=== PATIENT | female | born 1985 | race Hispanic/Latino ===

== ENCOUNTER 2017-08-26 12:15 | Emergency (ER) | payer SELFPAY ==
[2017-08-26] MEDS ORDERED: Ketorolac Tromethamine 60 MG/2 ML VIAL ONE (15:16)
== END 2017-08-26 15:30 | disposition home or self-care (01) ==
LOC: ERS 12:15
DX: J32.9 Chronic sinusitis, unspecified (principal)
CPT/HCPCS: 81025; 96372; J1885

== ENCOUNTER 2017-11-26 02:17 | Emergency (ER) | payer SELFPAY ==
[2017-11-26 03:03] LABS: Hemoglobin 12.5 g/dL (12.0-16.0); Mean Corpuscular Hemoglobin 29.5 pg (27.0-31.0); Mean Corpuscular Volume 86.8 fl (81.0-99.0); Mean Platelet Volume 6.9 fL (7.4-10.4); Platelet Count 340 thou/uL (130-400); RBC Distribution Width 12.7 % (11.5-14.5); Red Blood Cell (RBC) Count 4.23 mill/uL (4.20-5.40); White Blood Cell (WBC) Count 21.4 thou/uL (4.8-10.8)
[2017-11-26 03:08] LABS: ALT (SGPT) 12 U/L (8-55); AST (SGOT) 13 U/L (5-34); Albumin 3.8 g/dL (3.5-5.0); Alkaline Phosphatase 75 U/L (40-150); Anion Gap 13 mmol/L (10-20); BUN (Urea Nitrogen) 6 mg/dL (7.0-18.7); Bilirubin, Total 0.5 mg/dL (0.2-1.2); Calc. Creatinine Clearance 0 mL/min (70-130); Calcium 9.4 mg/dL (7.8-10.44); Carbon Dioxide 18 mmol/L (22-29); Chloride 104 mmol/L (98-107); Estimated GFR-MDRD Greater than 90; Glucose 143 mg/dL (70-105); Lipase 16 U/L (8-78); Potassium 3.1 mmol/L (3.5-5.1); Protein, Total 6.8 g/dL (6.0-8.3); Sodium 132 mmol/L (136-145)
[2017-11-26 03:10] LABS: Bilirubin Negative (Negative); Blood, Urine Trace (Negative); Clarity CLOUDY (Clear); Glucose, Urine (Dipstick) Negative (Negative); Leukocyte Large (Negative); Nitrite Positive (Negative); Protein, Urine (Dipstick) Trace mg/dL (Neg-Trace); Specific Gravity, Urine 1.013 (1.002-1.036); pH, Urine 6.5 (5.0-9.0)
[2017-11-26 03:13] LABS: Bacteria/HPF 4+ HPF (None Seen); Hyaline Casts/LPF 0-3 HYALINE CAST LPF (0-3 Hyaline); Pathc Cast-AUWi Flag 0.67 (0-2.49); Squamous Epithelial 0-3 HPF (0-3)
[2017-11-26 03:31] LABS: Band 15 % (5-11); Lymphocytes 13 % (21-51); MDiff Complete? YES; Monocytes 10 % (0-10); Neutrophil 62 % (42-75)
[2017-11-26] MEDS ORDERED: cefTRIAXone\\ROCEPHIN 2 GM in Sodium Chloride 0.9% 100 ML IVPB SCH (03:45)
--- NOTE | 2017-11-26 08:55 | ULT ---
PRELIMINARY REPORT/[facility]/EMERGENCY AFTER HOURS PROCEDURE: EXAM: US After First Trimester, Transabdominal EXAM DATE/TIME: 11/26/2017 2:53 AM CLINICAL HISTORY: 32 years old, female; Pain; Other: Cramping, uti; Gestational age or lmp: 14-15wks; TECHNIQUE: Real-time transabdominal obstetrical ultrasound of the maternal pelvis and a second or third trimester with image documentation. COMPARISON: No relevant prior studies available. FINDINGS: Fetus: Single Heart rate: 173 bpm Presentation: Cephalic. Placenta: Anterior. No abruption. Amniotic fluid: Normal volume. Anatomy: Visualized anatomy is normal, limited evaluation at early gestational age. BIOMETRICS Gestational age by US: GA by US: 14 weeks, 2 days BPD: 2.5 Cm HC: 10 cm AC: 7.7 Cm FL: 1.2 Cm MATERNAL: Uterus: Unremarkable. No myometrial mass. Cervix: 4.2 Cm as visualized. Closed. Free fluid: No free fluid. IMPRESSION: 1. Single viable intrauterine with EGA 14 weeks, 2 days by current US. 2. No acute findings. Thank you for allowing us to participate in the care of your patient. Dictated and Authenticated by: Yusra Faustin MD 11/26/2017 4:28 AM Central Time ([place] & [place]) FINAL REPORT EMERGENT AFTER HOURS PELVIC ULTRASOUND: DATE: 11/26/17. HISTORY: Positive , cramping, UTI. FINDINGS: There is evidence of a single intrauterine gestation. Cardiac Doppler does demonstrate heart t ones with a heart rate of 173 b.p.m. The placenta is located anteriorly. Subjectively, there is a normal amount of amniotic fluid. Cervical length grossly measures 4.2 cm in length. measurements: Biparietal diameter 2.5 cm, 14 weeks 3 days Head circumference 9.99 cm, 14 weeks 5 days Abdominal circumference 7.67 cm, 14 weeks 1 day Femur length 1.19 cm, 13 weeks 4 days anatomical structures are not well evaluated due to early intrauterine gestational age. No definite anomalies are visualized on this exam. IMPRESSION: 1. Single intrauterine gestation with heart tones documented. Estimated gestational age by ul trasound is 14 weeks and 2 days with an estimated date of delivery on 05/25/18. Gestational age by th e last menstrual period is 15 weeks and 3 days. 2. The above findings are in agreement with the preliminary report by [facility]. POS: [facility]
== END 2017-11-26 04:55 | disposition home or self-care (01) ==
LOC: ERS 02:17
DX: O23.02 Infections of kidney in pregnancy, second trimester (principal); Z3A.14 14 weeks gestation of pregnancy
CPT/HCPCS: 76856; 80053; 81003; 81015; 83605; 83690; 84702; 85025; 87077; 87086; 87186; 93976; 96361; 96365; J0696; J7050

== ENCOUNTER 2017-11-27 19:16 | Inpatient (IN) | payer SELFPAY ==
[~2017-11-27 19:16] MED LIST: Potassium Chloride 40 MEQ in Sodium Chloride 0.9% 250 ML 250 ML IVPB SCH
[2017-11-27] MEDS ORDERED: Acetaminophen 500 MG TAB PO PRN (19:38)
[2017-11-27] MEDS ORDERED: Ondansetron HCl/PF 4 MG/2 ML Vial SLOW IVP PRN (19:38)
[2017-11-27] MEDS: Lactated Ringer's 1,000 ML IV SCH (21:45)
[2017-11-27] MEDS ORDERED: Sodium Chloride 0.9% 30 ML ONE (21:53)
--- NOTE | 2017-11-27 22:10 | PDOC.FPRHP ---
- History of Present Illness Chief Complaint: dysuria, flank pain History of Present Illness: Mrs. Qiu is a 32 yo female @ 15.4wks who presents as a direct admit from clinic for suspected pyelonephritis and mild dehydration. She actually came to the ER last night with dysuria and back pain, was found to have a UTI and sent home on macrobid. She took one pill ~ 0400 then woke up the next morning and went to her PNC apt. At her apt, she was found to have worsening CVA tenderness and dysuria. She actually states that she has had the dysuria for ~2 months, but over the past couple days, it progressed to back pain. She also endorses some nausea and 3 episodes of vomiting. She has had decreased PO intake today d/t the nausea. - Allergies/Adverse Reactions Allergies Allergy/AdvReac Type Severity Reaction Status Date / Time No Known Allergies Allergy Verified 02/17/15 18:02 - Home Medications Medication Instructions Recorded Confirmed Type Vit,Calc78/Iron/Folic 1 tablet PO DAILY 01/20/15 02/22/15 History [Prenatabs FA Tablet] glyBURIDE 2.5 mg PO BID-WM 02/17/15 02/22/15 History Ibuprofen [Motrin] 800 mg PO Q8HR #0 tab 02/23/15 Rx - History PMHx: none OB hx: 2 prior vaginal deliveries 1st: male, , no complications 2nd: female, , gestational diabetes complications: none Medications: PNV PSHx: none FHx:none Social:denies alcohol, tobacco, and drug use - Review of Systems General: reports: fever/chills. denies: weight/appetite/sleep changes, night sweats ENT: denies: nasal congestion, rhinorrhea Respiratory: denies: cough, congestion, shortness of breath Cardiovascular: denies: chest pain, palpitation, edema Gastrointestinal: reports: nausea, vomiting. denies: diarrhea, constipation, abdominal pain Genitourinary: reports: dysuria. denies: incontinence, polyuria, discharge Skin: denies: rashes, lesions, jaundice Musculoskeletal: reports: pain (back, left sided). denies: tenderness, stiffness Neurological: denies: numbness, syncope Psychological: denies: anxiety, depression - Vital signs BP: 111/64 HR: 109 RR: 22 Tmax: 98.7 - Physical Exam Constitutional: NAD, awake, alert and oriented HEENT: normocephalic and atraumatic, PERRLA, EOMI, grossly normal vision, grossly normal hearing, other (dry mucous membranes) Neck: supple, no LAD, no JVD, no thyromegaly Heart: normal S1/S2, no murmurs/rubs/gallops, pulses present, no edema, other ( tachycardic) Lungs: CTAB, no respiratory distress, good air movement, no rales/rhonchi, no wheezing, no retractions Abdomen: soft, non-tender, bowel sounds present Musculoskeletal: other (cva tenderness on the left) Neurological: no focal deficit, normal sensation Skin: no rash/lesions FMR H&P: Results - Labs Result Diagrams: 11/27/17 22:56 11/27/17 22:56 FMR H&P: A/P - Problem List (1) Sepsis Current Visit: Yes Status: Acute Code(s): A41.9 - SEPSIS, UNSPECIFIED ORGANISM (2) Pyelonephritis Current Visit: Yes Status: Acute Code(s): N12 - TUBULO-INTERSTITIAL NEPHRITIS, NOT SPCF ACUTE OR CHRONIC (3) History of gestational hypertension Current Visit: Yes Status: Acute Code(s): Z87.59 - PERSONAL HISTORY OF COMP OF PREG, CHLDBRTH AND THE PUERP (4) Intrauterine Current Visit: Yes Status: Acute Code(s): Z34.90 - ENCNTR FOR SUPRVSN OF NORMAL , UNSP, UNSP TRIMESTER (5) Second trimester Current Visit: Yes Status: Acute Code(s): Z34.92 - ENCNTR FOR SUPRVSN OF NORMAL PREG, UNSP, SECOND TRIMESTER (6) Gestational diabetes Current Visit: Yes Status: Acute Code(s): O24.419 - GESTATIONAL DIABETES MELLITUS IN , UNSP CONTROL - Plan 32 yo female @ 15.4wks presents with left sided flank pain, dysuria, admitted from [facility] for sepsis 2/2 pyelonephritis. 1.)Sepsis 2/2 pyelonephritis-pt is tachycardic and has an elevated wbc; we started her on IV rocephin. The culture from the ER last night is growing angeles sensitive E. coli. We will repeat cbc and bmp in the am and order blood cultures. We also started her on fluids of LR @ 125ml/hr. We provided her with tylenol 38784 q8h and norco 5/328 q8h prn. She also has morphine for pain control as she was in a lot of pain when we saw her. We discussed the risks and benefits of opiates in . We also ordered a renal ultrasound. 2.)Pyelonephritis-see above. 2.)sIUP-@ 15.4wks, no complications at this time. She has a pmhx of gestational diabetes with her prior . 4.)Gestational diabetes- pt's current glucose is 236. We will order SSI and q4h accuchecks. We will start her on metformin and also order a hba1c. 5.)Mild dehydration- we started her on LR @ 125ml/hr 6.)Hypokalemia-likely 2/2 dehydration. She is on LR @ 125ml/hr. We will recheck in the am. FMR H&P: Upper Level - Pertinent history This is a 32 yo F @ 15.4 weeks approximately presents to PNC today with concerns for urinary symptoms and back pain. She was seen in the ER yesterday and was diagnosed with pyelonephritis and given rocephin IM and sent home on Macrobid. A US was done, and found to have a viable IUP. She was discharged home , and patient was seen in PNC today and felt that she was worsening, with decreased PO intake and nausea, and therefore was sent for admission for Pyelonephritis and dehydration. Has not felt baby move yet. No LOF or vaginal bleeding or CTX. Complains of urinary symptoms for about 2 months, however just recently started having fevers for the past few days and back pain. PE: GEN: AOx4, appears uncomfortable. CV: Tachycardic regular. No murmurs. Resp: CTA bilaterally. Ext: No LE swelling Abd: Minimal tenderness to palpation. No peritoneal signs or rebound or guarding. Back: + CVA tenderness on Left, equivical CVA tenderness R. A/P: 1) Complicated E.coli Pyelonephritis - Urine Cx from yesterday showed E. Coli pansensitive. Will continue Rocephin IV for now. Zofran for nausea. Tylenol for pain control, and morphine if needed. Discussed risks vs benefits of medications with patient. Patient aware and understands and would like to take medication if needed. CBC, CMP. Renal US. 2) IUP - heart tones QD. 3) Mild Dehydration - LR @ 125. - Plan Date/Time: 11/27/172209 I, [], have evaluated this patient and agree with findings/plan as outlined by diversity intern resident. Pertinent changes/additions are listed here. Attending Addendum - Attending Addendum Date/Time: 11/27/17 7518 I personally evaluated the patient and discussed the management with Dr. Israel Chopra on 11/27/17. I agree with the History, Examination, Assessment and Plan documented above with any addition or exceptions noted below. Patient is a multip at 14 wks with pyelonephritis. Start Rocephin and IV fluid resuscitation. Urine and blood cx. Renal US. Tylenol for fever, with morphine /[place] for pain control.
[2017-11-27] MEDS ORDERED: hydrOXYzine 10 MG TAB PO PRN (22:39)
[2017-11-27] MEDS ORDERED: Sodium Chloride 0.9% 1,000 ML IV SCH (23:00)
[2017-11-27 23:10] LABS: #Eosinphils 0.1 thou/uL (0.0-0.7); #Neutrophils 12.4 thou/uL (1.40-6.50); %Basophils 0.2 % (0.0-1.0); %Eosinophils 0.6 % (0.0-10.0); %Lymphocytes 12.6 % (21.0-51.0); %Monocytes 6.4 % (0.0-10.0); %Neutrophils 80.2 % (42.0-75.0); Hemoglobin 11.4 g/dL (12.0-16.0); Mean Corpuscular HGB CONC 33.4 g/dL (32.0-36.0); Mean Corpuscular Hemoglobin 29.2 pg (27.0-31.0); Mean Corpuscular Volume 87.3 fl (81.0-99.0); Platelet Count 319 thou/uL (130-400); RBC Distribution Width 12.6 % (11.5-14.5); Red Blood Cell (RBC) Count 3.91 mill/uL (4.20-5.40); White Blood Cell (WBC) Count 15.5 thou/uL (4.8-10.8)
[2017-11-27] MEDS: cefTRIAXone\\ROCEPHIN 1 GM, Syringe 0.4 ML in Sterile Water 9.6 ML SLOW IVP SCH (23:20)
[2017-11-27] MEDS ORDERED: Morphine 5 MG/ML SYRINGE SLOW IVP PRN (23:28)
[2017-11-27 23:34] LABS: ALT (SGPT) 14 U/L (8-55); AST (SGOT) 11 U/L (5-34); Albumin 3.4 g/dL (3.5-5.0); Alkaline Phosphatase 100 U/L (40-150); Anion Gap 16 mmol/L (10-20); BUN (Urea Nitrogen) Less than 4 mg/dL (7.0-18.7); Bilirubin, Total 0.3 mg/dL (0.2-1.2); Calc. Creatinine Clearance 0 mL/min (70-130); Calcium 9.4 mg/dL (7.8-10.44); Carbon Dioxide 18 mmol/L (22-29); Chloride 104 mmol/L (98-107); Estimated GFR-MDRD Greater than 90; Glucose 236 mg/dL (70-105); Protein, Total 6.4 g/dL (6.0-8.3); Sodium 135 mmol/L (136-145)
[2017-11-27 23:38] LABS: Potassium 2.7 mmol/L (3.5-5.1)
[2017-11-28] MEDS ORDERED: Potassium Chloride 20 MEQ TAB PO SCH ×2 (00:15→04:30)
[2017-11-28] MEDS ORDERED: Dextrose 5% in Water 1,000 ML IV PRN (03:02)
[2017-11-28] MEDS ORDERED: Dextrose 50% Abboject 50 ML SYRINGE SLOW IVP PRN (03:02)
[2017-11-28] MEDS ORDERED: HumaLOG 300 UNITS/3 ML VIAL SC PRN (03:02)
[2017-11-28] MEDS ORDERED: Acetaminophen 650 MG in Premix Bag 1 BAG IVPB PRN (03:07)
[2017-11-28 03:21] VITALS: BMI 25.2
[2017-11-28 03:47] LABS: Hemoglobin A1c 5.6 % (4.0-6.0)
[2017-11-28 03:49] LABS: #Eosinphils 0.1 thou/uL (0.0-0.7); #Lymphocytes 2.5 thou/uL (1.20-3.40); #Monocytes 1.3 thou/uL (0.11-0.59); %Basophils 0.2 % (0.0-1.0); %Lymphocytes 20.7 % (21.0-51.0); %Neutrophils 67.1 % (42.0-75.0); Hemoglobin 11.2 g/dL (12.0-16.0); Mean Corpuscular HGB CONC 33.5 g/dL (32.0-36.0); Mean Corpuscular Hemoglobin 29.4 pg (27.0-31.0); Mean Corpuscular Volume 87.9 fl (81.0-99.0); Mean Platelet Volume 6.9 fL (7.4-10.4); Platelet Count 320 thou/uL (130-400); RBC Distribution Width 12.6 % (11.5-14.5); White Blood Cell (WBC) Count 11.9 thou/uL (4.8-10.8)
[2017-11-28 03:51] LABS: Anion Gap 9 mmol/L (10-20); BUN (Urea Nitrogen) 4 mg/dL (7.0-18.7); Calc. Creatinine Clearance 164 mL/min (70-130); Calcium 9.1 mg/dL (7.8-10.44); Carbon Dioxide 24 mmol/L (22-29); Chloride 107 mmol/L (98-107); Estimated GFR-MDRD Greater than 90; Glucose 107 mg/dL (70-105); Sodium 137 mmol/L (136-145)
[2017-11-28] MEDS: HYDROcodone/Acetaminophen 5/325 mg Tablet PO PRN ×2 (06:33→14:08)
--- NOTE | 2017-11-28 07:48 | PDOC.FM ---
- Subjective Subjective: 32 yo @15.4 weeks gestation admitted for sepsis 2/2 pyelo. On admission she was having significant n/v and unable to take PO. Pt states that she she feels slightly better today than yesterday with some improvement in her nausea and back pain. She has no new complaints. There were no acute events overnight - Objective Vital Signs & Weight: Vital Signs (12 hours) Temp Pulse Resp BP 11/28/17 05:30 98.4 F 104 H 22 H 121/64 11/28/17 00:35 98.7 F 109 H 22 H 111/64 11/27/17 21:15 99.2 F 107 H 22 H 118/61 Weight Weight 70.76 kg Result Diagrams: 11/28/17 03:30 11/28/17 03:30 <Sam Paul - Last Filed: 11/28/17 07:43> - Objective Vital Signs & Weight: Vital Signs (12 hours) Temp Pulse Resp BP Pulse Ox 11/29/17 16:53 98.0 F 83 20 134/74 11/29/17 12:59 97.5 F L 88 20 116/69 11/29/17 08:15 98.5 F 95 20 11/29/17 08:00 98.5 F 95 20 142/71 H 99 11/29/17 05:05 98.1 F 91 20 112/59 L 97 Weight Weight 70.76 kg I&O: 11/28/17 11/29/17 11/30/17 06:59 06:59 06:59 Intake Total 1933 Output Total 3500 800 Balance -1567 -800 Result Diagrams: 11/28/17 03:30 11/29/17 05:20 <Mallory Heredia - Last Filed: 11/29/17 17:07> Phys Exam - Physical Examination Constitutional: NAD HEENT: PERRLA, moist MMs Neck: supple, full ROM Respiratory: clear to auscultation bilateral Cardiovascular: RRR, no significant murmur Gastrointestinal: soft, non-tender, positive bowel sounds Musculoskeletal: no edema b/l CVAT Neurological: normal sensation, moves all 4 limbs Psychiatric: normal affect, A&O x 3 Skin: no rash, normal turgor <Sam Paul - Last Filed: 11/28/17 07:43> Dx/Plan (1) Sepsis Code(s): A41.9 - SEPSIS, UNSPECIFIED ORGANISM Status: Acute QualifierTitle: Sepsis type: Escherichia coli Qualified Code(s): A41.51 - Sepsis due to Escherichia coli [E. coli] (2) Pyelonephritis Code(s): N12 - TUBULO-INTERSTITIAL NEPHRITIS, NOT SPCF ACUTE OR CHRONIC Status: Acute (3) Hyperglycemia Code(s): R73.9 - HYPERGLYCEMIA, UNSPECIFIED Status: Acute (4) Intrauterine Code(s): Z34.90 - ENCNTR FOR SUPRVSN OF NORMAL , UNSP, UNSP TRIMESTER Status: Chronic (5) Hypokalemia Code(s): E87.6 - HYPOKALEMIA Status: Acute (6) Dehydration Code(s): E86.0 - DEHYDRATION Status: Acute - Plan Plan: Sepsis 2/2 pyelonephritis - pt continues to be tachycardic with an elevated wbc - Previous urine cx shows angeles sensitive e coli, given that she cannot take PO, will continue IV abx with plan to change to orals when tolerated. - blood cx pending - CBC/BMP in am - renal US pending - LR @125 for IVF - tylenol 83995 q8h and norco 5/328 q8h prn. Pyelo - as above sIUP - 15.4wks, no complications at this time. Hyperglycemia - on admission glucose was 236. more recently 107 and 99. - Likely stress reaction given A1c if 5.6. Screen for GDM per usual management outpatient Mild dehydration - IVF as above Hypokalemia - asymptomatic - K has been added to IVF. Recheck this afternoon - Mg 1.9 <Sam Paul - Last Filed: 11/28/17 07:43> Attending Addendum - Attending Addendum Date/Time: 11/28/17 3787 I personally evaluated the patient and discussed the management with Dr. Paul I agree with the History, Examination, Assessment and Plan documented above with any addition or exceptions noted below. 32 yo female at 15.4 wks by 15.3 wk sono admitted for pyelonephritis HD#1 Remains afebrile. CVA tenderness still present. Nausea still present. No emesis overnight. Appetite still suppressed. FHT 132 NAD, RRR, CTA bilaterally, mild CVA tenderness bilaterally, abdomen soft, BS present 1. sIUP: Routine care 2. Pyelonephritis: Continue IV antibx until pain improved and afebrile. E. coli [place] sensitive. Renal sono benign. Will need antibx ppx throughout and up to 6 wks pp. Will need periodic urine cultures as well throughout . 3. Hyperglycemia: A1c WNL. No evidence of glucose intolerance. Screen for GDM at 24 wks. 4. Hypokalemia: Resolved with replacement. 5. Mild dehydration: Resolved with IVFs. Continue IV antibx and IVFs. Likely transition to PO tomorrow. ABrayMD <Mallory Heredia - Last Filed: 11/29/17 17:07>
[2017-11-28] MEDS ORDERED: FLU VACC QS2017-18 36 mo. & older 0.5 ML SYRINGE IM ONE (09:00)
--- NOTE | 2017-11-28 09:12 | ULT ---
RENAL ULTRASOUND: History: Pyelonephritis. FINDINGS: Real-time imaging of the right and left kidneys were performed. The right kidney measures 10.6, the l eft 11.0 cm in size. No signs of cysts, mass or obstruction. Bladder region is unremarkable. Patient is noted to be . IMPRESSION: Unremarkable renal ultrasound. POS: OFF
[2017-11-28] MEDS ORDERED: Lactated Ringer's 500 ML IV SCH (09:45)
[2017-11-28] MEDS: Potassium Chloride 20 MEQ, Admixture Fee 1 EACH in Lactated Ringer's 1,000 ML IV SCH ×2 (10:06→13:44)
[2017-11-28] MEDS: Prenatal Vitamin 1 TAB PO SCH (10:16)
[2017-11-28] MEDS: Lactated Ringer's 1,000 ML IV SCH (13:45)
[2017-11-28] MEDS: cefTRIAXone\\ROCEPHIN 1 GM, Syringe 0.4 ML in Sterile Water 9.6 ML SLOW IVP SCH (20:06)
[2017-11-29] MEDS: HYDROcodone/Acetaminophen 5/325 mg Tablet PO PRN ×2 (00:26→08:52)
[2017-11-29] MEDS: Potassium Chloride 20 MEQ, Admixture Fee 1 EACH in Lactated Ringer's 1,000 ML IV SCH (00:28)
[2017-11-29 05:58] LABS: Anion Gap 11 mmol/L (10-20); BUN (Urea Nitrogen) 5 mg/dL (7.0-18.7); Calc. Creatinine Clearance 167 mL/min (70-130); Calcium 9.4 mg/dL (7.8-10.44); Carbon Dioxide 22 mmol/L (22-29); Chloride 105 mmol/L (98-107); Estimated GFR-MDRD Greater than 90; Glucose 95 mg/dL (70-105); Sodium 134 mmol/L (136-145)
[2017-11-29] MEDS ORDERED: Acetaminophen 500 MG TAB PO PRN (07:15)
[2017-11-29] MEDS: Lactated Ringer's 1,000 ML IV SCH ×2 (08:09→16:19)
--- NOTE | 2017-11-29 08:29 | PDOC.FM ---
- Subjective Subjective: 32 yo at 15.5 here for elmo. Pt states that she feels somewhat better today than yesterday. She has decreased nausea and has had no vomiting since yesterday afternoon and was able to keep down some dinner last night. She has no new complaints today. There were no acute events over night. - Objective Vital Signs & Weight: Vital Signs (12 hours) Temp Pulse Resp BP Pulse Ox 11/29/17 05:05 98.1 F 91 20 112/59 L 97 11/29/17 00:15 98.2 F 96 20 117/59 L 97 Weight Weight 70.76 kg I&O: 11/28/17 11/29/17 11/30/17 06:59 06:59 06:59 Intake Total 193 Output Total 3500 800 Balance -1628 -583 Result Diagrams: 11/28/17 03:30 11/29/17 05:20 <Sam Paul - Last Filed: 11/29/17 08:27> - Objective Vital Signs & Weight: Vital Signs (12 hours) Temp Pulse Resp BP Pulse Ox 11/29/17 16:53 98.0 F 83 20 134/74 11/29/17 12:59 97.5 F L 88 20 116/69 11/29/17 08:15 98.5 F 95 20 11/29/17 08:00 98.5 F 95 20 142/71 H 99 Weight Weight 70.76 kg I&O: 11/28/17 11/29/17 11/30/17 06:59 06:59 06:59 Intake Total 193 202 Output Total 3500 800 Balance -6591 -756 Result Diagrams: 11/28/17 03:30 11/29/17 05:20 <Mallory Heredia - Last Filed: 11/29/17 18:19> Phys Exam - Physical Examination Constitutional: NAD HEENT: PERRLA, moist MMs Neck: supple, full ROM Respiratory: clear to auscultation bilateral Cardiovascular: RRR, no significant murmur Gastrointestinal: soft, non-tender, no distention Musculoskeletal: no edema Mild CVAT on L Neurological: non-focal, moves all 4 limbs Psychiatric: normal affect, A&O x 3 Skin: no rash <Sam Paul - Last Filed: 11/29/17 08:27> Dx/Plan (1) Sepsis Code(s): A41.9 - SEPSIS, UNSPECIFIED ORGANISM Status: Acute QualifierTitle: Sepsis type: Escherichia coli Qualified Code(s): A41.51 - Sepsis due to Escherichia coli [E. coli] (2) Pyelonephritis Code(s): N12 - TUBULO-INTERSTITIAL NEPHRITIS, NOT SPCF ACUTE OR CHRONIC Status: Acute (3) Hyperglycemia Code(s): R73.9 - HYPERGLYCEMIA, UNSPECIFIED Status: Acute (4) Intrauterine Code(s): Z34.90 - ENCNTR FOR SUPRVSN OF NORMAL , UNSP, UNSP TRIMESTER Status: Chronic (5) Hypokalemia Code(s): E87.6 - HYPOKALEMIA Status: Resolved (6) Dehydration Code(s): E86.0 - DEHYDRATION Status: Resolved - Plan Plan: Sepsis 2/2 pyelonephritis - clinically improving, tachycardia resolved yesterday afternoon. All vitals have been normal since - Urine cx shows angeles sensitive e coli. Consider moving to oral abx today - blood cx prelim results show no growth - renal US negative - Stop IVF today and move to oral hydration - tylenol 22954 q8h and norco 5/328 q8h prn. Pyelo - as above sIUP - 15.4wks, no complications at this time. Hyperglycemia - on admission glucose was 236. more recently 107 and 99. - Likely stress reaction given A1c if 5.6. Screen for GDM per usual management outpatient Mild dehydration - resolved Hypokalemia - resolved Dispo: Pending continued PO intake pt ready for dc this afternoon or in am <Sam Paul - Last Filed: 11/29/17 08:27> Attending Addendum - Attending Addendum Date/Time: 11/29/17 7245 I personally evaluated the patient and discussed the management with Dr. Paul I agree with the History, Examination, Assessment and Plan documented above with any addition or exceptions noted below. 32 yo female at 15.5 wks by 15.3 wk sono admitted for pyelonephritis HD#2 Remains afebrile. CVA tenderness resolved. Nausea improved. No emesis overnight. Tolerating PO well. NAD, RRR, CTA bilaterally, No CVA tenderness, abdomen soft, gravid, BS present 1. sIUP: Routine care 2. Pyelonephritis: Switch to PO antibx. Will complete total of 10 day treatment. E. coli ang[place] sensitive. Renal sono benign. Will need antibx ppx throughout and up to 6 wks pp. Will need periodic urine cultures as well throughout . 3. Hyperglycemia: A1c WNL. No evidence of glucose intolerance. Screen for GDM at 24 wks. 4. Hypokalemia: Resolved with replacement. 5. Mild dehydration: Resolved with IVFs. D/c to home this afternoon. [place] <Mallory Heredia - Last Filed: 11/29/17 18:19>
[2017-11-29] MEDS: Prenatal Vitamin 1 TAB PO SCH (08:52)
[2017-11-29 16:54] VITALS: BP 134/74; TEMP 98
[2017-11-29] MEDS ORDERED: Cephalexin 250 MG CAP PO SCH (17:15)
--- NOTE | 2017-11-29 22:16 | DIS-2 ---
DATE OF ADMISSION: 11/27/2017 DATE OF DISCHARGE: 11/29/2017 RESIDENT: Sam Paul D.O. ADMITTING ATTENDING: Maude Oglesby D.O. DISCHARGE ATTENDING: Mallory Heredia M.D. CONSULTATIONS: None. PROCEDURES: None. ADMISSION DIAGNOSES: Sepsis secondary to pyelonephritis. Second trimester intrauterine . History of gestational hypertension and history of gestational diabetes. DISCHARGE DIAGNOSES: Pyelonephritis, history of gestational hypertension, history of gestational brent betes and second trimester intrauterine . DISCHARGE MEDICATIONS: vitamin p.o. daily and Keflex 250 mg capsules, 500 mg p.o. b.i.d. x8 days. HOSPITAL COURSE: This is a 32-year-old G4, P2 at 15 and 4 weeks on admission who is a direct admit f rom the Clinic for suspected pyelonephritis and dehydration. The patient had been seen the day prior to admission in the emergency room where they found a UTI and sent her on an outpatient rosario atment of [facility]. The next morning, she had a previous scheduled appointment with Clinic and it was noticed that she had significant nausea and vomiting as well as costovertebral angle tende rness. The patient was a direct admit from there. On admission, the urine culture from the prior da y resulted in a pansensitive E. coli. Due to being unable to tolerate p.o. intake, the patient was p ut on IV Rocephin and was given intravenous fluid resuscitation. The patient was additionally given Zofran for her nausea and vomiting. An ultrasound during admission was ordered to rule out a possibl e abscess, this ultrasound was negative. Over the course of the hospitalization, the patient's nause a and vomiting improved significantly. On the day of discharge, she was able to tolerate p.o. food a nd drink. She was ambulating without pain. She denied continued costovertebral angle tenderness or pain. She was nontachycardic. All vital signs are normal. It was recommended due to the fact that she had pyelonephritis while that after completing her treatment course she [facility] for the remainder of and 6 weeks . DISPOSITION: Stable. DISCHARGE INSTRUCTIONS: 1. Location: Home. 2. Diet: Regular. 3. Activity: Ad jared. 4. Followup: Follow up with Clinic in 1 week.
[2017-11-30] MEDS ORDERED: Cephalexin 250 MG CAP PO SCH (09:00)
== END 2017-11-29 18:20 | disposition home or self-care (01) | DRG 781 ==
LOC: 3SE 19:16
PROVIDERS: ADMIT Student in an Organized Health Care Education/Training Program; ATTEND Student in an Organized Health Care Education/Training Program
DX: O98.812 Other maternal infectious and parasitic diseases complicating pregnancy, second trimester (principal); A41.9 Sepsis, unspecified organism; O23.02 Infections of kidney in pregnancy, second trimester; E86.0 Dehydration; Z3A.15 15 weeks gestation of pregnancy; E87.6 Hypokalemia; O26.892 Other specified pregnancy related conditions, second trimester; O13.2 Gestational [pregnancy-induced] hypertension without significant proteinuria, second trimester; O24.419 Gestational diabetes mellitus in pregnancy, unspecified control
CPT/HCPCS: 36415; 36416; 76770; 80048; 80053; 83036; 83735; 85025; 87040; 90471; 90682; A4216; G0008; J0131; J0696; J2405; J3480; J7050; J7120; Q2036

== ENCOUNTER 2018-04-05 16:25 | Emergency (ER) | payer MEDICAID, SELFPAY ==
[2018-04-05] MEDS ORDERED: Acetaminophen 500 MG TAB ONE (17:16)
[2018-04-05] MEDS ORDERED: Bacitracin Zinc 1 Packet ONE (17:20)
[2018-04-05] MEDS ORDERED: Acetaminophen 325 MG TAB ONE (18:09)
[2018-04-05] MEDS ORDERED: Ondansetron ODT 4 MG TAB ONE (18:17)
== END 2018-04-05 18:41 | disposition home or self-care (01) ==
LOC: ERS 16:25
DX: O99.89 Other specified diseases and conditions complicating pregnancy, childbirth and the puerperium (principal); J30.9 Allergic rhinitis, unspecified; H65.92 Unspecified nonsuppurative otitis media, left ear; Z79.84 Long term (current) use of oral hypoglycemic drugs
CPT/HCPCS: 99282; Q0162

== ENCOUNTER 2018-04-09 22:10 | Emergency (ER) | payer OTHER, SELFPAY | END 2018-04-09 23:55 | disposition home or self-care (01) | LOC: ERS 22:10 | DX: O99.513 Diseases of the respiratory system complicating pregnancy, third trimester (principal); J32.9 Chronic sinusitis, unspecified; Z79.84 Long term (current) use of oral hypoglycemic drugs; Z79.899 Other long term (current) drug therapy; Z3A.34 34 weeks gestation of pregnancy | CPT/HCPCS: 99283 ==

== ENCOUNTER 2018-04-12 11:13 | Inpatient (IN) | payer OTHER, SELFPAY ==
--- NOTE | 2018-04-12 12:48 | PDOC.FPROB ---
FMR OB H&P: HPI - History of Present Illness Chief Complaint: facial droop with trouble swallowing Indentification: 33 yo at 35.0 wks by LMP/15.0 wk sono History of Present Illness: Transferred from [facility] for direct admission for evaluation of progressive neurological findings. Patient reports symptoms present for the past 4 wks with significant progression over the last 1 to 2 days. Symptoms have included eyelid droop, left sided facial droop, changes in vision (blurring), changes in voice (weak and raspy), weight loss/poor weight gain, and troubling swallowing ( liquids --> solids). Also associated with left sided headache, eye pain, and left sided shoulder pain. Change in voice started originally 2 wks ago. Vision is more affected in left eye than right eye but complains of vision difficulty in both. Reports numbness to left side of face. Upon further questioning she reports bilateral lower extremity weakness while standing with weakness in bilateral circulation worker strength. Along with weakness she report numbness as well to extremities. has been complicated by pyelonephritis in early and A2 GDM. She is currently on metformin. Reports glucose is well controlled. No complications with medications. Reports good FM. Denies symptoms, VB, LOF, contractions, or discharge. Primary Care Physician: Dr. [facility]MR OB H&P: Current - Care : 4 Para: 2011 Gestational age: 35.0 wks Due date: 05/17/2018 Dating Criteria: LMP/15.0 wks Total weight gain: -4 lbs Course/Complications: care at [facility]. Complications: 1. A2, GDM 2. hx of GDM 3. Pyelonephritis this 4. Thrombocytosis 5. hx of SAB - OB Labs Blood type: A RH: positive Antibody Screen: negative HIV: negative (11/27/17,) RPR: negative (11/27/17,) HepBsAg: negative Rubella: immune Quad screen: negative Urine drug screen: not done Gonorrhea: negative Chlamydia: negative Pap Smear: NILM 04/2017 1 hour gtt: 200 A1c: 6.0 --> 5.5 H&H: 11.6/33.5 --> 12.2/35.4 --> 12.0/36.2 --> 12.6/36.9 Platelets: 534 --> 451 --> 367 --> 353 Additional labs: Urine Cx: negative. ESR = 28 --> 30 Ferritin = 58 Iron = 55 TIBC = 356/411 % saturation = 13% CRP = 3.5 TSH = 2.240 Tdap: 03/07/18 - First Trimester Ultrasound First trimester: Unavailable at this time - Anatomy Survey Anatomy survey: 01/01/2018 GA: 19.1 wks EFW = 301g (70.3%) Grossly normal female fetus Anterior placenta - Additional Ultrasound Additional: Level II sono 01/11/2018 Dx: GDM with possible pregestational DM due to A1c = 6.0% prior to 20 wks Grossly normal fetus. Grossly normal cardiac structures. Grossly normal amniotic fluid. FMR OB H&P: History - Past Medical History PMH: 1. hx of gHTN 2. Seasonal Allergies - OB History OB History: 1. 09/24/2011 40 wks 8 hours 7lbs 12oz male uncomplicated 2. 01/08/2014 6 wks SpontAB 3. 02/22/2015 38 wks 7lbs 10oz female Complicated by GDM - [employer] History [employer] History: Age: 14 LMP: 08/10/2017 Regular, normal flow No STIs No abnormal pap smears - Surgical History Sx History: NONE - Social History Social History: . 2 children. Homemaker. Denies T/A/D use. No recent travel. No recent illness. No history of blood transfusion. - Family History Family History: Mother: Healthy Father: Healthy Denies congenital abnormalities and cancers. FMR OB H&P: Medications - Current Home Medications: Medication Instructions Recorded Confirmed Type Vit,Calc78/Iron/Folic 1 tablet PO DAILY 01/20/15 04/12/18 History [Prenatabs FA Tablet] Amoxicillin/Potassium Clav 1 each PO DAILY 04/12/18 04/12/18 History [Amox-Clav 875-125 mg Tablet] Ferrous Sulfate [Iron] 325 mg PO DAILY 04/12/18 04/12/18 History Loratadine [Claritin] 10 mg PO DAILY 04/12/18 04/12/18 History metFORMIN HCl [Metformin HCl] 1,000 mg PO BID 04/12/18 04/12/18 History Allergies/Adverse Reactions: Allergies Allergy/AdvReac Type Severity Reaction Status Date / Time No Known Allergies Allergy Verified 02/17/15 18:02 FMR OB H&P: ROS - Review of Systems General: reports: fever/chills, weight/appetite/sleep changes, fatigue. denies : night sweats, recent trauma Eyes: reports: eye pain, vision changes, double vision. denies: scotomas, floaters ENT: reports: trouble with swallowing. denies: nasal congestion, rhinorrhea, frequent nose bleed, sinus pain/pressure, ear pain, ringing in ears, sore throat Cardiovascular: denies: chest pain, palpitation, edema Respiratory: denies: cough, congestion, shortness of breath Gastrointestinal: denies: abdominal pain, indigestion, cramping, nausea, vomiting, diarrhea, constipation Genitourinary (Female): denies: dysuria, hematuria, vaginal discharge, vaginal pain, vaginal bleeding, contractions Musculoskeletal: denies: pain, stiffness, tenderness Neurologic: reports: numbness, weakness, headache Integumentary: denies: rash, lesions Breast: denies: lumps, bumps, masses Endocrine: reports: cold intolerance. denies: heat intolerance Psychological: denies: depression, anxiety FMR OB H&P: Physical Exam - Physical Exam General: NAD, awake, alert and oriented HEENT: normocephalic and atraumatic, MMM, conjunctiva clear, no scleral icterus , grossly normal hearing, normal nasal mucosa Neck: supple, FROM, no LAD Chest: non-tender to palpation, no lesions Heart: RRR, normal S1/S2, no murmurs/rubs/gallops, pulses present (Bilateral post tibial) General: CTAB, no respiratory distress, good air movement, no rales/rhonchi, no wheezing, no retractions Abdomen: soft, gravid, non-tender Musculoskeletal: normal gait and station, pulses present, FROM in all four extremities Neurological: other (anisocoria- left pupil dilated and minimally reacitve to direct light. slight left sided ptosis, slight left facial droop, neg Haufman, no clonus, reflex 1+, decreased sensation in left side of face, EOMI weak hoarse voice, CN 11 intact, no dysdiadikokinesia, normal finger to nose, no cerebellar findings, no pronator drift, normal gait.) Skin: no rash, capillary refill <2 seconds Lymphatic: no unusual bruising or bleeding FMR OB H&P: Results - Labs Lab results: Laboratory Tests 04/12/18 04/12/18 12:49 12:49 WBC 12.1 H Hgb 14.0 Hct 40.2 Plt Count 296 Sodium 137 Potassium 3.6 Chloride 106 Carbon Dioxide 18 L Anion Gap 17 BUN 6 L Creatinine 0.56 L Estimated GFR (MDRD) Greater than 90 Glucose 90 Calcium 9.7 Total Bilirubin 0.6 AST 29 ALT 58 H Alkaline Phosphatase 180 H Serum Total Protein 6.9 Albumin 3.6 FMR OB H&P: A/P - Problem List (1) Nerve palsy Current Visit: Yes Status: Acute Code(s): G58.9 - MONONEUROPATHY, UNSPECIFIED (2) Dysphagia Current Visit: Yes Status: Acute Code(s): R13.10 - DYSPHAGIA, UNSPECIFIED (3) Normal intrauterine in third trimester Current Visit: No Status: Acute Code(s): Z34.93 - ENCNTR FOR SUPRVSN OF NORMAL PREG, UNSP, THIRD TRIMESTER (4) Gestational diabetes Current Visit: No Status: Acute Code(s): O24.419 - GESTATIONAL DIABETES MELLITUS IN , UNSP CONTROL (5) History of pyelonephritis during Current Visit: Yes Status: Acute Code(s): Z87.59 - PERSONAL HISTORY OF COMP OF PREG, CHLDBRTH AND THE PUERP; Z87.440 - PERSONAL HISTORY OF URINARY (TRACT) INFECTIONS Discussion: Date/Time: 04/12/18 1244 33 yr old at 35 wks by LMP/15 wks who presents for progressively worsening facial neurologic deficits. nerve palsy -unclear etiology although may be secondary to viral like illness, but must rule out tumor. -symptoms from this morning c/w cranial nerve 3 palsy but not clearly consistent now. -Will check TSH, hep C, and if not recently done will get HIV/RPR -pending MRI and MRA- without contrast -neuro consult dysphagia -pending speech consult and recommendations -NPO until cleared by speech sIUP -obtain NST -routine care/precautions A2 Gestational DM -cont metformin -blood glucose log well controlled per PCP history of pyelonephritis in this -was supposed to be on macrobid ppx -does not appear she has been on this This H&P was discussed with [Mallory Heredia] who agree with the above documentation and plan. Attending Addendum - Attending Addendum Date/Time: 04/12/18 1601 I personally evaluated the patient and discussed the management with Dr. Bernabe I agree with the History, Examination, Assessment and Plan documented above with any addition or exceptions noted below. 33 yo female at 35.0 wks by LMP/15.0 wks sono directly admitted for evaluation of multiple neurological complaints. See HPI for complete history. In short symptoms progressive over 4 wks. Is now less than starting weight of due to dysphasia. Cranial nerve palsies on exam as stated. complicated by: Controlled A2, GDM, hx of pyelonephritis (routine urine cx negative), thrombocytopenia, and hx of SAB x 1. 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 Neurology and NeuroSurg consulted. Recommend transfer to higher level of care for surgical treatment. Transfer center notified. Awaiting placement. NST pending but no concerns at this time. Will monitor glucose readings QID. Continue home meds (PNV, macrobid, metformin). Labs reviewed. Will need 3T labs and GBS swab. Awaiting neurosurg plans, if medically indicated PTD will need BMZ course for FLM and likely elective primary section. [place]
[2018-04-12 13:05] VITALS: BMI 28.1
[2018-04-12 13:13] LABS: #Basophils 0.1 thou/uL (0.0-0.2); #Eosinphils 0.5 thou/uL (0.0-0.7); #Monocytes 0.9 thou/uL (0.11-0.59); #Neutrophils 8.7 thou/uL (1.40-6.50); %Basophils 0.5 % (0.0-1.0); %Eosinophils 3.8 % (0.0-10.0); %Lymphocytes 16.8 % (21.0-51.0); %Monocytes 7.3 % (0.0-10.0); %Neutrophils 71.7 % (42.0-75.0); Mean Corpuscular HGB CONC 34.7 g/dL (32.0-36.0); Mean Corpuscular Hemoglobin 30.9 pg (27.0-31.0); Mean Corpuscular Volume 88.9 fL (78.0-98.0); Mean Platelet Volume 7.8 fL (7.4-10.4); Platelet Count 296 thou/uL (130-400); RBC Distribution Width 13.5 % (11.5-14.5); Red Blood Cell (RBC) Count 4.52 mill/uL (4.20-5.40); White Blood Cell (WBC) Count 12.1 thou/uL (4.8-10.8)
[2018-04-12 13:34] LABS: ALT (SGPT) 58 U/L (8-55); AST (SGOT) 29 U/L (5-34); Albumin 3.6 g/dL (3.5-5.0); Alkaline Phosphatase 180 U/L (40-150); Anion Gap 17 mmol/L (10-20); BUN (Urea Nitrogen) 6 mg/dL (7.0-18.7); Bilirubin, Total 0.6 mg/dL (0.2-1.2); Calc. Creatinine Clearance 161 mL/min (70-130); Calcium 9.7 mg/dL (7.8-10.44); Carbon Dioxide 18 mmol/L (22-29); Chloride 106 mmol/L (98-107); Estimated GFR-MDRD Greater than 90; Globulin 3.3 g/dL (2.4-3.5); Glucose 90 mg/dL (70-105); Potassium 3.6 mmol/L (3.5-5.1); Protein, Total 6.9 g/dL (6.0-8.3); Sodium 137 mmol/L (136-145)
[2018-04-12 14:17] LABS: Hemoglobin A1c 5.3 % (4.0-6.0)
--- NOTE | 2018-04-12 15:07 | CON ---
DATE OF CONSULTATION: 04/12/2018 CHIEF COMPLAINT: Problems with the left side and also headache on the left side. HISTORY OF PRESENT ILLNESS: History was obtained with help from online marketing graphics specialist and the patient reports she is a 33-year-old right-handed lady who comes with history of 2 week history of headache on the left side of the head and retroorbital pain. The patient also has developed numbness on the left side plus droopiness of the left eye, all since 2 weeks. The patient did present to the ER earlier as well with left-sided ear pain, choking and shoulder pain. The patient reports she has gestational diabetes and she is currently . She has had recent history of ear problems and per ER note on 04/09/2018, she reported she had blood coming out of her left ear. She also complained to me about left eye blurred vision plus history of numbness on the left side in the face, arm, and leg territory and she has droopiness of the left eye and she sometimes has double vision. She feels weak all over the body, starting from the left side of the head and all her symptoms have been occurring for the last 2 weeks. She also has hoarseness of voice and swallowing problems and her voice goes out after she talks for a while. PREVIOUS MEDICAL HISTORY: She is otherwise healthy except for having had some headaches on and off and gestational diabetes. ALLERGIES: She has no known drug allergies. CURRENT MEDICATIONS: She takes vitamins, metformin. She also takes metformin 1000 mg per day, Claritin and vitamins. FAMILY HISTORY: Negative for any similar events or hypertension or stroke in the family. PAST SURGICAL HISTORY: None reported. SOCIAL HISTORY: She lives with her , looks after her children. Does not smoke or drink. REVIEW OF SYSTEMS: ENT: Positive for hoarseness of voice, swallowing problems, Opthalmologic: Double vision, blurred vision, Neurological: Numbness and sensory problems. GI: Negative for any diarrhoea or constipation, : Normal, patient is . Dermatologic: Normal, Endocrine: Normal. LABORATORY DATA: Her current labs are pending at this time. I did not see any lab reports for this visit. PHYSICAL EXAMINATION: VITAL SIGNS: As noted in the chart. GENERAL APPEARANCE: Well-built, well-nourished lady who is comfortable in bed. EYES: She has left eye ptosis. CHEST: Clear vesicular breathing. ABDOMEN: She has full term uterus. CARDIOVASCULAR: S1, S2 heard, no murmurs. NEUROLOGICAL: High intellectual functions, normal orientation to time, place, person, and appropriate with conversation. Cranial nerves II-XII. Pupils 3 mm on the left, sluggish reaction to light. Right pupil is normal and left eye ptosis. Extraocular movements are normal. CRANIAL NERVES: She has decreased sensation to touch and even vibration on the left side of the face. No facial asymmetry noted. Hearing is normal to finger rub. Tongue midline, no atrophy noted. Motor exam: Bulk normal, tone normal, strength 5/5 in upper and lower extremities in iliopsoas, hamstrings, quadriceps , ankle dorsiflexion, plantar flexion, deltoid, biceps, triceps, wrist extension /flexion, finger extension and flexion. Deep tendon reflexes are preserved at 2 + throughout and vibratory. SENSORY: Decreased touch, temperature and vibration on the left hand side and the left side including face and sternal area and also upper and lower extremities. Gait not tested. IMPRESSION: Patient is a 33-year-old lady with gestational diabetes. She is and she gives a 2 week history of having had ptosis in the left eye, plus difficulty with her vision, hoarseness, swallowing issues and also she reported to the ER physician, she had blood coming out of her left ear about 4 days ago. Her neurological examination is abnormal with the left eye ptosis, sluggish reaction of pupil on the left side and she has decreased sensation, although some of the features of sensory loss but change in vibration from right to left sternum can be more suggestive of a functional etiology to part of her sensory deficit. Clinically, we need to rule out the cause for her left pupillary abnormality and ptosis. She also has swallowing problems plus hoarseness of voice. We need to investigate this further. RECOMMENDATIONS: I would like to obtain MRI of the brain without contrast and MR angiogram of the head to make sure she does not have aneurysm and I will follow up the patient with you. No additional medications for now. 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 I also reviewed her CT head from 2012 which did not have the same tumor. I requested neurosurgery consult yesterday and by the time I am signing this note, patient has been transferred to [facility] for further care. RHODA
--- NOTE | 2018-04-12 16:22 | MRI ---
MAGNETIC RESONANCE ANGIOGRAPHY HEAD NONCONTRAST: 04/12/2018 HISTORY: A 33-year-old female with stroke-like symptoms. TECHNIQUE: 3D [id number]-ethsva MRA acquired in multiple axial slabs through the hoh of He. Source images a nd 3D MIP reconstructions evaluated. FINDINGS: There is a huge extraaxial posterior fossa neoplastic tumor mass, which displaces many of the blood v essels. The basilar artery and the intracranial left vertebral artery are posteriorly displaced by t he mass. The right vertebral artery is diminutive, and its intracranial component has segments of ve ry diminished signal and caliber. It probably terminates in PICA. The left petrous carotid is super iorly and anterolaterally displaced by the component of the tumor that is destroying the left petrous apex. There is a patent right posterior communicating artery, which is slightly stretched in the an teroposterior dimension, because of the enlargement of the suprasellar cistern caused by the severe p osterior displacement of the brainstem by the tumor mass. The bilateral anterior and middle cerebral arteries and their proximal branches are normal. There is no evidence of aneurysm greater than 3 mm . IMPRESSION: 1. 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 2. With the possible exception of the right vertebral artery, which may terminate in PICA (posterior -inferior cerebral artery), there is no evidence of acquired stenosis or occlusion. POS: JESSIAC
--- NOTE | 2018-04-12 18:38 | PDOC.EVN ---
Event Note - Event Note Event Note: Time: 635 NST Cat 1 FHTs, Reactive Baseline 145, Moderate variability, Reactive- good accels, No decels No contractions Dr. Yissel Barrera, PGY-1 <Deborah Barrera - Last Filed: 04/12/18 18:34> - Event Note Event Note: Reactive NST. Continue q day and prn. ABrayMD <Mallory Heredia - Last Filed: 04/14/18 11:58>
--- NOTE | 2018-04-12 19:23 | MRI ---
MRI BRAIN NONCONTRAST: DATE: 04/12/18 HISTORY: 33-year-old female in third trimester of (35 weeks), with diplopia, left facial pa in, left facial numbness (hypesthesia), and dysphagia. Dr. Graham discussed the findings by telephone with Dr. Cece Bernabe of [facility] at [address] Graham discussed the findings with neurologist, Dr. Mara Joaquin, at 1430 hours on 04/12. COMPARISON: None. FINDINGS: There is a very large extra-axial mass arising from, and destroying, the clivus, growing posteriorly to chronically severely compressing, posteriorly displacing, and flattening the hugh, and also the me dulla. The midbrain is distorted by this. The mass measures approximately 5 cm craniocaudal x 5 cm ob lique transverse x 3.5 cm oblique AP. The mass also destroys the distal tip of the odontoid process. It extends inferiorly to reach the C1-2 level at the anterior epidural space. The severe compression of the medulla results in severe narrowing of the bilateral foramina of Luschka and foramen of Magend ie. 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 The tumor mass also inv ades and completely effaces left Meckel's cave, and slightly encroaches upon the medial aspect of the left middle cranial fossa. It invades and destroys the left petrous apex. It fills much of the anter ior portion of the foramen magnum. The left cerebellar tonsil herniates a short distance inferior to the foramen magnum. The mass invades or severely stretches the left longus capitus and longus colli m uscles, causing an anterior bulge in the pharyngeal mucosal space of the left nasopharynx. Its left m ost inferior extent involves either the left prevertebral space or retropharyngeal space, or both, do wn to the C1-2 junction. The mass severely stretches some of the cranial nerves, and severely compresses others, and these inc lude the bilateral 6th, 5th and 4th cranial nerves. The 7th-8th nerve complexes are also stretched, w ith some impingement on the left. The 3rd cranial nerves are stretched. The lateral and third ventric les are mildly dilated. The fourth ventricle is mildly to moderately narrowed by the mass effect. The re is no vasogenic edema in the brain parenchyma. The tumor mass itself has mixed signal intensity, mostly moderately heterogeneously T2 hyperintense, and has mixed areas of T1 isointensity relative to brain parenchyma, and left-sided T1 moderate hypoi ntensity. On FLAIR, the left side, especially the extracranial tumor component, is slightly hypointen se relative to brain parenchyma, while the right sided is heterogeneously mostly hyperintense relativ e to the brain parenchyma. On the gradient echo sequence, there are numerous foci of magnetic suscept ibility artifact within the mass indicating numerous small foci of hemorrhages or calcifications with in the mass. The left side of the tumor mass, especially the extracranial component, has restricted d iffusion, indicating high cellularity or high nucleus:cytoplasm ratio. There is an extensive left mastoid effusion. The mass does not contact the optic chiasm. It superior portion abuts the dorsal edge of the dorsum sella. The pituitary gland appears normal. The suprasella r cisterna is enlarged due to the posterior displacement of the brainstem by the mass. Flow-voids are maintained in the major arteries of the curyung of He. No major intra-axial signal abnormality of the cerebral hemispheres. It was elected not to give the Gadolinium based contrast agent IV because of the patient's s iglesias, and because the diagnosis can be made on the noncontrast images alone. IMPRESSION: 1. Very large extra-axial, posterior fossa mass arising from, and destroying the clivus, severely co mpressing the brainstem, and severely compressing and/or stretching multiple cranial nerves. 2. 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 3. 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 CODE CR. JN R POS: JESSICA
[2018-04-12] MEDS ORDERED: Fluticasone Propionate Nasal Spray 16 gm Bottle NASAL SCH (20:30)
[2018-04-12] MEDS ORDERED: Nitrofurantoin Monohyd/M-Cryst 100 MG CAP PO SCH (21:00)
[2018-04-12] MEDS ORDERED: metFORMIN 500 MG TAB PO SCH (21:00)
[2018-04-12] MEDS ORDERED: Acetaminophen 500 MG TAB PO SCH (21:15)
[2018-04-12 23:02] VITALS: BP 141/88; TEMP 98.1
[2018-04-13] MEDS ORDERED: Fluticasone Propionate Nasal Spray 16 gm Bottle NASAL SCH (09:00)
[2018-04-13] MEDS ORDERED: Ferrous Sulfate 325 MG TAB PO SCH (09:00)
== END 2018-04-12 23:03 | disposition short-term general hospital (02) | DRG 781 ==
LOC: 2SE 11:45 → OBSVTOIN 11:45
PROVIDERS: ADMIT Emergency Medicine; ATTEND Emergency Medicine
DX: O9A.113 Malignant neoplasm complicating pregnancy, third trimester (principal); C41.2 Malignant neoplasm of vertebral column; O24.419 Gestational diabetes mellitus in pregnancy, unspecified control; Z3A.35 35 weeks gestation of pregnancy; G58.9 Mononeuropathy, unspecified; R13.10 Dysphagia, unspecified
CPT/HCPCS: 36415; 36416; 70544; 70551; 80053; 83036; 84443; 85025; A4216; G8978-GP-CJ; G8979-GP-CJ; G8980-GP-CJ; G8996-GN-CJ; G8997-GN-CI

== ENCOUNTER 2018-07-11 19:29 | Emergency (ER) | payer MEDICAID, SELFPAY ==
[~2018-07-11 19:29] MED LIST changes: +ISOVUE-370 76%-LOCM 1 ML ONE; -Potassium Chloride 40 MEQ in Sodium Chloride 0.9% 250 ML 250 ML IVPB SCH
[2018-07-11 20:55] LABS: #Basophils 0.1 thou/uL (0.0-0.2); #Eosinphils 0.3 thou/uL (0.0-0.7); #Lymphocytes 3.8 thou/uL (1.20-3.40); #Monocytes 0.6 thou/uL (0.11-0.59); #Neutrophils 4.8 thou/uL (1.40-6.50); %Basophils 0.8 % (0.0-1.0); %Eosinophils 3.5 % (0.0-10.0); %Lymphocytes 40.2 % (21.0-51.0); %Monocytes 5.7 % (0.0-10.0); %Neutrophils 49.7 % (42.0-75.0); Hemoglobin 13.6 g/dL (12.0-16.0); Mean Corpuscular HGB CONC 31.3 g/dL (32.0-36.0); Mean Corpuscular Hemoglobin 25.7 pg (27.0-31.0); Mean Corpuscular Volume 82.2 fL (78.0-98.0); Mean Platelet Volume 7.8 fL (7.4-10.4); Platelet Count 446 thou/uL (130-400); RBC Distribution Width 15.4 % (11.5-14.5); Red Blood Cell (RBC) Count 5.27 mill/uL (4.20-5.40); White Blood Cell (WBC) Count 9.6 thou/uL (4.8-10.8)
[2018-07-11 21:16] LABS: Anion Gap 12 mmol/L (10-20); BUN (Urea Nitrogen) 8 mg/dL (7.0-18.7); Calc. Creatinine Clearance 0 mL/min (70-130); Carbon Dioxide 24 mmol/L (22-29); Chloride 106 mmol/L (98-107); Estimated GFR-MDRD Greater than 90; Glucose 107 mg/dL (70-105); Potassium 4.3 mmol/L (3.5-5.1); Sodium 138 mmol/L (136-145)
--- NOTE | 2018-07-11 21:17 | RAD ---
TWO VIEWS CHEST: 07/11/18 HISTORY: Lymphadenopathy. COMPARISON: None. FINDINGS: Normal cardiac silhouette. Pulmonary vessels and hilum are normal. No masses or consolidation. No pne umothorax or osseous abnormalities. IMPRESSION: No acute cardiopulmonary process. POS: [facility]
--- NOTE | 2018-07-12 07:39 | CT ---
POSTCONTRAST SOFT TISSUE NECK CT 07/11/18 HISTORY: Swelling. Lymphedema. Patient has had previous chordoma resection. COMPARISON: None. CORRELATION: Brain MRI 04/12/18. FINDINGS: There are postoperative changes at the skull base which have been described on the head CT. There is abnormal hypoattenuation along the posterior left nasopharynx as well as in the posterior left retro pharyngeal space. Findings may represent recurrence of tumor. This area of abnormal attenuation measu res 3.6 x 2.0 cm. Symmetric attenuation of the parotid and submandibular glands. Unremarkable right thyroid lobe. There is an indeterminate left thyroid lesion with punctate hyperdensity measuring 7 mm. Great vessels of the neck are grossly patent. There is evidence of nonspecific left neck lymphadenopathy. There is a b orderline right level II lymph node measuring 1.7 x 0.7 cm. With the exception of the nasopharynx, the aerodigestive tract appears to be grossly patent. Epiglott is has a normal caliber. Pre-epiglottic fat is preserved. No masses in the oral cavity. Midline fatty raphae of the tongue is preserved. No prevertebral soft tissue swelling. Central spinal canal and neural foramina are patent. No evidenc e of cervical spine fracture. There is resection of the tip of the odontoid process as well as resect ion of the clivus. IMPRESSION: Postoperative changes compatible with chordoma resection. There is evidence of surgery involving the sinuses with opacification of the sinuses which has been described on the previous head CT report. Th ere is a possible meningocele a the level of surgical resection (at the level of the clivus). There i s abnormal hypoattenuation involving the left nasopharynx as well as the left retropharyngeal space a t the C1 and to a lesser extent C2 levels. Tumor recurrence is suspected. Correlation made with previ ous brain MRI does suggest abnormal signal attenuation in this region. Further evaluation with a repe at brain MRI is recommended. POS: JESSICA
--- NOTE | 2018-07-12 07:39 | CT ---
HEAD CT WITHOUT CONTRAST 07/11/18 COMPARISON: 04/12/13 COMPARISON: None. CORRELATION: Brain MRI 04/12/18. HISTORY: Lymphadenopathy, brain tumor removed in April. Swelling. FINDINGS: No parenchymal hemorrhage. No extra-axial hematoma. No midline shift. Basilar cisterns are patent. Ce rebrum is unremarkable. Cortical rios-white matter differentiation is preserved. The ventricles and s ulci are patent and symmetric. There is abnormal hypoattenuation at the level of the foramen magnum. A normal appearing clivus is no t appreciated. Abnormal hypoattenuation expands into the expected region of the clivus and may repres ent a meningocele. There is also abnormal attenuation at the level of the nasopharynx. Abnormal atten uation is noted in the visualized paranasal sinuses. There is partial opacification of the visualized paranasal sinuses. There is evidence of previous sinonasal surgery. The calvarium appears to be inta ct. There is abnormal hypoattenuation in the posterior left nasopharynx, incompletely evaluated. IMPRESSION: Findings compatible with resection of a previous chordoma. Evaluation is limited and incomplete. No a cute intracranial process is suspected. Further interrogation with brain MRI may be beneficial along with a neurosurgical consultation. POS: JESSICA
== END 2018-07-12 00:28 | disposition home or self-care (01) ==
LOC: ERS 19:29
DX: R59.0 Localized enlarged lymph nodes (principal); N39.0 Urinary tract infection, site not specified; K52.9 Noninfective gastroenteritis and colitis, unspecified
CPT/HCPCS: 36415; 70450; 70491; 71046; 80048; 85025; 87804

== ENCOUNTER 2023-06-20 08:34 | Inpatient (IN) | payer SELFPAY ==
[2023-06-20] MEDS ORDERED: Morphine 4 MG/ML VIAL ONE (09:35)
[2023-06-20] MEDS ORDERED: Ondansetron PF 4 MG/2 ML Vial ONE (09:35)
[2023-06-20 09:54] LABS: #Basophils 0.1 thou/uL (0.0-0.2); #Monocytes 0.9 thou/uL (0.11-0.59); #Neutrophils 8.5 thou/uL (1.40-6.50); %Basophils 0.5 % (0.0-1.0); %Eosinophils 0.3 % (0.0-10.0); %Lymphocytes 17.3 % (21.0-51.0); %Monocytes 7.8 % (0.0-10.0); %Neutrophils 73.5 % (42.0-75.0); Hematocrit 35.2 % (36.0-47.0); Hemoglobin 10.7 g/dL (12.0-16.0); Mean Corpuscular HGB CONC 30.4 g/dL (32.0-36.0); Mean Corpuscular Hemoglobin 21.4 pg (27.0-31.0); Mean Corpuscular Volume 70.5 fl (78.0-98.0); Mean Platelet Volume 10.2 fL (7.4-10.4); Platelet Count 438 10x3/uL (130-400); RBC Distribution Width 19.1 % (11.5-14.5); Red Blood Cell (RBC) Count 4.99 mill/uL (4.20-5.40); White Blood Cell (WBC) Count 11.6 10x3/uL (4.8-10.8)
[2023-06-20 10:04] LABS: BHCG - Serum Negative (NEGATIVE); Pregs Control Background? CLEAR/WHITE (CLR/WHITE); Pregs Control Bar Appear? YES (CONTROL BAR)
[2023-06-20 10:23] LABS: ALT (SGPT) 49 U/L (8-55); AST (SGOT) 44 U/L (5-34); Alkaline Phosphatase 72 U/L (40-110); Anion Gap 17 mmol/L (10-20); BUN (Urea Nitrogen) 13 mg/dL (7.0-18.7); Bilirubin, Total 0.3 mg/dL (0.2-1.2); Calc. Creatinine Clearance 0 mL/min (70-130); Calcium 9.8 mg/dL (7.8-10.44); Carbon Dioxide 21 mmol/L (22-29); Chloride 102 mmol/L (98-107); Estimated GFR 104; Globulin 2.9 g/dL (2.4-3.5); Glucose 115 mg/dL (70-105); Protein, Total 7.9 g/dL (6.0-8.3); Sodium 136 mmol/L (136-145)
[2023-06-20 10:53] LABS: CellaVision Operator ID LAB.GE; Microcytosis MODERATE=15-30 cells HPF (0-5); Ovalocytes SLIGHT = 2-5 cells HPF (0-1); Platelet Adequacy Comment Platelets Increased; Polychromasia SLIGHT = 2-3 cells HPF (0-2)
[2023-06-20 10:53] LABS: Bacteria/HPF 4+ HPF (None Seen); Bilirubin Negative (Negative); Blood, Urine Negative (Negative); CAUTI Indications for Culture Pelvic or flank pain; Clarity Turbid (Clear); Glucose, Urine (Dipstick) Normal (Negative); Ketone, Urine Negative (Negative); Leukocyte Negative Leu/uL (Negative); Nitrite 2+ (Negative); Protein, Urine (Dipstick) Negative (Neg-Trace); RBC/HPF None Seen HPF (0-3); Specific Gravity, Urine 1.012 (1.002-1.036); Squamous Epithelial None Seen HPF (0-3); Urobilinogen Normal mg/dL (Less than 2); WBC/HPF None Seen HPF (0-3)
[2023-06-20 10:55] LABS: Urine Culture Reflex No No
[2023-06-20] MEDS ORDERED: cefTRIAXone (ROCEPHIN) 1 GM VIAL ONE (12:07)
[2023-06-20] MEDS ORDERED: Calcium Carbonate 500 MG ChewTAB PO PRN (12:12)
[2023-06-20] MEDS ORDERED: Ondansetron ODT 4 MG TAB PO PRN (12:12)
[2023-06-20] MEDS ORDERED: Insulin Regular 300 UNITS/3 ML VIAL SC PRN (12:19)
[2023-06-20] MEDS ORDERED: HumaLOG 300 UNITS/3 ML VIAL SC PRN (12:19)
[2023-06-20] MEDS ORDERED: Dextrose 5% in Water 1,000 ML IV PRN (12:19)
[2023-06-20] MEDS ORDERED: Dextrose 50% Abboject 50 ML SYRINGE SLOW IVP PRN (12:19)
[2023-06-20] MEDS ORDERED: Glucagon 1 MG/ML KIT IM PRN (12:19)
[2023-06-20 14:06] VITALS: BMI 25.6
[2023-06-20] MEDS: Cyclobenzaprine 10 MG TAB PO PRN ×2 (14:08→20:09)
[2023-06-20] MEDS: Acetaminophen 500 MG TAB PO SCH ×2 (14:08→20:09)
[2023-06-20] MEDS ORDERED: Diazepam 10 MG/2 ML SYRINGE IVP SCH (15:00)
[2023-06-20] MEDS: Morphine 4 MG/ML VIAL SLOW IVP PRN ×2 (15:39→20:03)
[2023-06-21] MEDS: Morphine 4 MG/ML VIAL SLOW IVP PRN ×5 (00:49→20:36)
[2023-06-21] MEDS: Cyclobenzaprine 10 MG TAB PO PRN ×2 (05:53→16:04)
[2023-06-21 07:19] LABS: #Basophils 0.1 thou/uL (0.0-0.2); #Eosinphils 0.1 thou/uL (0.0-0.7); #Monocytes 0.8 thou/uL (0.11-0.59); #Neutrophils 7.5 thou/uL (1.40-6.50); %Eosinophils 0.8 % (0.0-10.0); %Lymphocytes 21.5 % (21.0-51.0); %Monocytes 7.1 % (0.0-10.0); %Neutrophils 69.2 % (42.0-75.0); Hematocrit 33.9 % (36.0-47.0); Hemoglobin 9.9 g/dL (12.0-16.0); Mean Corpuscular HGB CONC 29.2 g/dL (32.0-36.0); Mean Corpuscular Hemoglobin 21.9 pg (27.0-31.0); Mean Platelet Volume 10.9 fL (7.4-10.4); Platelet Count 422 10x3/uL (130-400); RBC Distribution Width 19.1 % (11.5-14.5); Red Blood Cell (RBC) Count 4.53 mill/uL (4.20-5.40); White Blood Cell (WBC) Count 10.8 10x3/uL (4.8-10.8)
[2023-06-21 07:29] LABS: Mean Corpuscular Volume 74.8 fl (78.0-98.0)
[2023-06-21 07:51] LABS: ALT (SGPT) 60 U/L (8-55); AST (SGOT) 42 U/L (5-34); Albumin 4.8 g/dL (3.5-5.0); Alkaline Phosphatase 74 U/L (40-110); Anion Gap 13 mmol/L (10-20); BUN (Urea Nitrogen) 12 mg/dL (7.0-18.7); Bilirubin, Total 0.3 mg/dL (0.2-1.2); Calc. Creatinine Clearance 118 mL/min (70-130); Calcium 9.5 mg/dL (7.8-10.44); Carbon Dioxide 22 mmol/L (22-29); Chloride 105 mmol/L (98-107); Estimated GFR 117; Globulin 2.6 g/dL (2.4-3.5); Glucose 87 mg/dL (70-105); Iron 37 ug/dL (50-170); Iron Binding Capacity, Total 374 mcg/dL (265-497); Potassium 3.1 mmol/L (3.5-5.1); Protein, Total 7.4 g/dL (6.0-8.3); Sodium 137 mmol/L (136-145)
[2023-06-21] MEDS: Acetaminophen 500 MG TAB PO SCH ×3 (08:19→20:36)
[2023-06-21] MEDS: Senokot S 8.6-50 MG TAB PO PRN ×2 (08:19→20:35)
[2023-06-21] MEDS: cefTRIAXone\\ROCEPHIN 1 GM in Sodium Chloride 0.9% 100 ML IVPB SCH (08:20)
[2023-06-21] MEDS ORDERED: Polyethylene Glycol 3350 17 GM Packet PO PRN (09:08)
[2023-06-21] MEDS ORDERED: Bisacodyl 5 MG TAB PO PRN (11:02)
[2023-06-21] MEDS ORDERED: Bisacodyl 5 MG TAB PO SCH (11:15)
[2023-06-21] MEDS ORDERED: Dexamethasone 10 MG/ML VIAL SLOW IVP SCH (14:15)
[2023-06-21] MEDS: Ferrous Sulfate 325 MG TAB PO SCH (16:04)
[2023-06-21] MEDS: Dexamethasone 4 mg/ml Vial SLOW IVP SCH (20:37)
[2023-06-22] MEDS: Dexamethasone 4 mg/ml Vial SLOW IVP SCH ×4 (02:28→20:22)
[2023-06-22] MEDS: Morphine 4 MG/ML VIAL SLOW IVP PRN ×4 (02:28→20:35)
[2023-06-22] MEDS: Acetaminophen 500 MG TAB PO SCH ×4 (08:37→19:45)
[2023-06-22] MEDS: Ferrous Sulfate 325 MG TAB PO SCH ×3 (08:37→17:39)
[2023-06-22] MEDS: Cyclobenzaprine 10 MG TAB PO PRN ×2 (08:37→19:46)
[2023-06-22] MEDS: cefTRIAXone\\ROCEPHIN 1 GM in Sodium Chloride 0.9% 100 ML IVPB SCH (08:38)
[2023-06-22 20:26] VITALS: BP 129/83; TEMP 98.2
[2023-06-23] MEDS ORDERED: FLU VACC QS2023-24(6MOS UP)/PF 60 MCG/0.5 ML SYRINGE IM ONE (18:00)
== END 2023-06-22 20:44 | disposition short-term general hospital (02) | DRG 74 ==
LOC: ERS 08:34 → SUATTDRO 08:34 → T4-A 12:12 → OBSVTOIN 06-21 12:13
PROVIDERS: ADMIT Internal Medicine; ATTEND Internal Medicine
DX: G83.4 Cauda equina syndrome (principal); C79.51 Secondary malignant neoplasm of bone; M25.552 Pain in left hip; M25.551 Pain in right hip; R30.0 Dysuria; R33.9 Retention of urine, unspecified; K59.00 Constipation, unspecified; C80.1 Malignant (primary) neoplasm, unspecified; Z98.891 History of uterine scar from previous surgery; Z85.830 Personal history of malignant neoplasm of bone
CPT/HCPCS: 36415; 36416; 70553; 72100; 72158; 80053; 81001; 82728; 83540; 83550; 84703; 85025; 86140; 87077; 87086; 87186; J0696; J1100; J2270; J2405; J3360; J3490

== ENCOUNTER 2023-07-22 03:04 | Emergency (ER) | payer SELFPAY ==
[2023-07-22 03:39] LABS: #Basophils 0.1 thou/uL (0.0-0.2); #Eosinphils 0.2 thou/uL (0.0-0.7); #Monocytes 0.5 thou/uL (0.11-0.59); #Neutrophils 5.7 thou/uL (1.40-6.50); %Basophils 0.6 % (0.0-1.0); %Eosinophils 2.3 % (0.0-10.0); %Lymphocytes 17.5 % (21.0-51.0); %Neutrophils 72.6 % (42.0-75.0); Hematocrit 42.2 % (36.0-47.0); Hemoglobin 13.2 g/dL (12.0-16.0); Mean Corpuscular HGB CONC 31.3 g/dL (32.0-36.0); Mean Corpuscular Hemoglobin 26.7 pg (27.0-31.0); Mean Corpuscular Volume 85.4 fl (78.0-98.0); Mean Platelet Volume 10.3 fL (7.4-10.4); Platelet Count 329 10x3/uL (130-400); Red Blood Cell (RBC) Count 4.94 mill/uL (4.20-5.40); White Blood Cell (WBC) Count 7.8 10x3/uL (4.8-10.8)
[2023-07-22 03:59] LABS: Anisocytosis MODERATE=16-30 cells HPF (0-5); CellaVision Operator ID LAB.CLH1; Elliptocytes MODERATE= 6-15 cells HPF (0-1); Macrocytosis SLIGHT = 6-15 cells HPF (0-5); Platelet Adequacy Comment Platelets Normal; Polychromasia SLIGHT = 2-3 cells HPF (0-2)
[2023-07-22 04:08] LABS: ALT (SGPT) 168 U/L (8-55); AST (SGOT) 68 U/L (5-34); Albumin 4.8 g/dL (3.5-5.0); Alkaline Phosphatase 215 U/L (40-110); Anion Gap 16 mmol/L (10-20); BHCG - Serum Negative (NEGATIVE); BUN (Urea Nitrogen) 5 mg/dL (7.0-18.7); Bilirubin, Total 0.6 mg/dL (0.2-1.2); Calc. Creatinine Clearance 0 mL/min (70-130); Calcium 10.1 mg/dL (7.8-10.44); Carbon Dioxide 24 mmol/L (22-29); Chloride 102 mmol/L (98-107); Estimated GFR 122; Globulin 2.9 g/dL (2.4-3.5); Glucose 120 mg/dL (70-105); Potassium 4.3 mmol/L (3.5-5.1); Pregs Control Background? CLEAR/WHITE (CLR/WHITE); Pregs Control Bar Appear? YES (CONTROL BAR); Protein, Total 7.7 g/dL (6.0-8.3); Sodium 138 mmol/L (136-145)
[2023-07-22 04:09] LABS: Bilirubin Negative (Negative); Blood, Urine Negative (Negative); Clarity Turbid (Clear); Glucose, Urine (Dipstick) Normal (Negative); Ketone, Urine Negative (Negative); Leukocyte 500 Leu/uL (Negative); Nitrite 1+ (Negative); Protein, Urine (Dipstick) Negative (Neg-Trace); Specific Gravity, Urine 1.007 (1.002-1.036); Urobilinogen Normal mg/dL (Less than 2); pH, Urine 7.5 (5.0-9.0)
[2023-07-22 04:21] LABS: Bacteria/HPF 4+ HPF (None Seen); CAUTI Indications for Culture Pelvic or flank pain; RBC/HPF 0-3 HPF (0-3); Squamous Epithelial 0-3 HPF (0-3)
[2023-07-22 04:22] LABS: Urine Culture Reflex No No
[2023-07-22] MEDS ORDERED: Ondansetron PF 4 MG/2 ML Vial ONE (04:38)
[2023-07-22] MEDS ORDERED: Morphine 4 MG/ML VIAL ONE (04:38)
[2023-07-22] MEDS ORDERED: Sodium Chloride 0.9% 100 ML ONE (05:10)
[2023-07-22] MEDS ORDERED: cefTRIAXone (ROCEPHIN) 2 GM VIAL ONE (05:10)
[2023-07-22 06:23] LABS: SARS-CoV-2 NAA Rapid Test Not Detected (NotDetected)
[2023-07-22] MEDS ORDERED: Iopamidol-370 76% 500 ML MDV (1 ML CHARGE) ONE (10:31)
== END 2023-07-22 06:33 | disposition home or self-care (01) ==
LOC: ERS 03:04
DX: N39.0 Urinary tract infection, site not specified (principal); Z20.822 Contact with and (suspected) exposure to COVID-19
CPT/HCPCS: 36415; 71045; 74177; 80053; 81001; 83605; 83690; 84703; 85025; 87040; 87077; 87086; 93005; 96365; 96375; J0696; J2270; J2405; J3490; Q9967

== ENCOUNTER 2023-09-23 16:30 | Inpatient (IN) | payer SELFPAY ==
[~2023-09-23 16:30] MED LIST changes: -ISOVUE-370 76%-LOCM 1 ML ONE; +Iopamidol 370 76% 100 ML VIAL ONE
[2023-09-23] MEDS ORDERED: Vancomycin 1 GM/200 ML (FROZEN) BAG ONE (17:02)
[2023-09-23] MEDS ORDERED: Cefepime 2 GM VIAL ONE (17:02)
[2023-09-23] MEDS ORDERED: Ondansetron PF 4 MG/2 ML Vial ONE (17:02)
[2023-09-23 17:03] LABS: #Basophils 0.1 thou/uL (0.0-0.2); #Eosinphils 0.2 thou/uL (0.0-0.7); #Monocytes 0.5 thou/uL (0.11-0.59); #Neutrophils 5.9 thou/uL (1.40-6.50); %Basophils 0.8 % (0.0-1.0); %Eosinophils 2.1 % (0.0-10.0); %Lymphocytes 19.4 % (21.0-51.0); %Monocytes 5.9 % (0.0-10.0); %Neutrophils 70.6 % (42.0-75.0); Hematocrit 44.8 % (36.0-47.0); Hemoglobin 14.8 g/dL (12.0-16.0); Mean Corpuscular Hemoglobin 29.3 pg (27.0-31.0); Mean Corpuscular Volume 88.7 fl (78.0-98.0); Mean Platelet Volume 10.2 fL (7.4-10.4); Platelet Count 274 10x3/uL (130-400); RBC Distribution Width 13.7 % (11.5-14.5); Red Blood Cell (RBC) Count 5.05 mill/uL (4.20-5.40); White Blood Cell (WBC) Count 8.4 10x3/uL (4.8-10.8)
[2023-09-23 17:18] LABS: ALT (SGPT) 55 U/L (8-55); AST (SGOT) 63 U/L (5-34); Albumin 3.8 g/dL (3.5-5.0); Alkaline Phosphatase 78 U/L (40-110); Anion Gap 17 mmol/L (10-20); BUN (Urea Nitrogen) 7 mg/dL (7.0-18.7); Bilirubin, Total 0.4 mg/dL (0.2-1.2); Calc. Creatinine Clearance 0 mL/min (70-130); Calcium 8.9 mg/dL (7.8-10.44); Carbon Dioxide 24 mmol/L (22-29); Chloride 103 mmol/L (98-107); Estimated GFR 120; Globulin 2.7 g/dL (2.4-3.5); Glucose 181 mg/dL (70-105); Lipase 42 U/L (8-78); Potassium 3.6 mmol/L (3.5-5.1); Protein, Total 6.5 g/dL (6.0-8.3); Sodium 140 mmol/L (136-145)
[2023-09-23 17:19] LABS: Troponin I Less than 0.010 ng/mL (< 0.028)
[2023-09-23 17:22] LABS: PTT 28.3 sec (22.9-36.1); Prothrombin Time 13.5 sec (12.0-14.7)
[2023-09-23] MEDS ORDERED: Morphine 4 MG/ML VIAL ONE (18:06)
[2023-09-23 18:10] LABS: Bacteria/HPF 2+ HPF (None Seen); Bilirubin Negative (Negative); Blood, Urine Negative (Negative); CAUTI Indications for Culture Alt mental st,lethar; Clarity Turbid (Clear); Glucose, Urine (Dipstick) Normal (Negative); Ketone, Urine Negative (Negative); Leukocyte 250 Leu/uL (Negative); Nitrite Negative (Negative); Protein, Urine (Dipstick) Negative (Neg-Trace); RBC/HPF 0-3 HPF (0-3); Specific Gravity, Urine 1.009 (1.002-1.036); Squamous Epithelial 0-3 HPF (0-3); pH, Urine 7.5 (5.0-9.0)
[2023-09-23 18:12] LABS: Urine Culture Reflex No No
[2023-09-23 19:31] LABS: SARS-CoV-2 NAA Rapid Test Not Detected (NotDetected)
[2023-09-23] MEDS ORDERED: Piperacillin/Tazobactam 3.375 GM in Sodium Chloride 0.9% 100 ML IVPB SCH (20:45)
[2023-09-23 20:52] LABS: Lactic Acid 0.8 mmol/L (0.5-2.2)
[2023-09-23] MEDS ORDERED: Dextrose 50% Abboject 50 ML SYRINGE SLOW IVP PRN (22:06)
[2023-09-23] MEDS ORDERED: Glucagon 1 MG/ML KIT IM PRN (22:06)
[2023-09-23] MEDS ORDERED: Dextrose 5% in Water 1,000 ML IV PRN (22:06)
[2023-09-23] MEDS ORDERED: Ondansetron ODT 4 MG TAB PO PRN (22:17)
[2023-09-23] MEDS ORDERED: Ondansetron PF 4 MG/2 ML Vial IVP PRN (22:17)
[2023-09-23] MEDS ORDERED: Acetaminophen 325 MG TAB PO PRN (22:17)
[2023-09-23] MEDS ORDERED: HumaLOG 300 UNITS/3 ML VIAL SC PRN ×2 (22:17)
[2023-09-23] MEDS ORDERED: Sodium Chloride 0.9% 1,000 ML IV SCH (22:30)
[2023-09-23 23:07] VITALS: BMI 22.8
[2023-09-23] MEDS: Morphine 2 MG/ML VIAL SLOW IVP PRN (23:24)
[2023-09-24] MEDS: Piperacillin/Tazobactam 3.375 GM in Sodium Chloride 0.9% 100 ML IVPB SCH ×3 (03:43→19:58)
[2023-09-24] MEDS: Morphine 2 MG/ML VIAL SLOW IVP PRN (03:43)
[2023-09-24] MEDS ORDERED: Morphine 4 MG/ML VIAL SLOW IVP PRN (05:08)
[2023-09-24 06:23] LABS: #Basophils 0.1 thou/uL (0.0-0.2); #Eosinphils 0.6 thou/uL (0.0-0.7); #Monocytes 0.6 thou/uL (0.11-0.59); %Basophils 0.6 % (0.0-1.0); %Eosinophils 5.7 % (0.0-10.0); %Lymphocytes 13.3 % (21.0-51.0); %Monocytes 6.4 % (0.0-10.0); Hemoglobin 13.1 g/dL (12.0-16.0); Mean Corpuscular Hemoglobin 28.9 pg (27.0-31.0); Mean Corpuscular Volume 90.5 fl (78.0-98.0); Mean Platelet Volume 10.3 fL (7.4-10.4); Platelet Count 254 10x3/uL (130-400); RBC Distribution Width 13.8 % (11.5-14.5); Red Blood Cell (RBC) Count 4.53 mill/uL (4.20-5.40); White Blood Cell (WBC) Count 9.6 10x3/uL (4.8-10.8)
[2023-09-24 06:49] LABS: Anion Gap 12 mmol/L (10-20); BUN (Urea Nitrogen) Less than 4 mg/dL (7.0-18.7); Calc. Creatinine Clearance 127 mL/min (70-130); Calcium 8.8 mg/dL (7.8-10.44); Carbon Dioxide 26 mmol/L (22-29); Chloride 107 mmol/L (98-107); Estimated GFR 122; Glucose 86 mg/dL (70-105); Potassium 2.8 mmol/L (3.5-5.1); Sodium 142 mmol/L (136-145)
[2023-09-24] MEDS ORDERED: Lactated Ringer's 1,000 ML IV SCH (07:00)
[2023-09-24] MEDS ORDERED: Scopolamine 1 mg/72 hour Patch TD SCH (07:00)
[2023-09-24] MEDS ORDERED: Ketorolac Tromethamine 30 MG (1 mL) VIAL IVP SCH (07:00)
[2023-09-24] MEDS ORDERED: Acetaminophen 500 MG TAB PO SCH (07:00)
[2023-09-24] MEDS ORDERED: Potassium Chloride 20 MEQ TAB PO SCH (08:30)
[2023-09-24] MEDS ORDERED: Potassium Chloride 20 MEQ in Lactated Ringer's 1,000 ML IV SCH (08:30)
[2023-09-24] MEDS: Heparin 5,000 UNITS/ML VIAL SC SCH ×3 (09:08→19:59)
[2023-09-24 10:47] LABS: Potassium 3.3 mmol/L (3.5-5.1)
[2023-09-24] MEDS ORDERED: Morphine 4 MG/ML VIAL ONE (11:42)
[2023-09-24] MEDS ORDERED: Piperacillin/Tazobactam 3.375 GM VIAL ONE (11:51)
[2023-09-24] MEDS ORDERED: Sodium Chloride 0.9% 100 ML ONE (11:51)
[2023-09-24] MEDS ORDERED: Ketorolac Tromethamine 30 MG (1 mL) VIAL IVP PRN (13:00)
[2023-09-24] MEDS ORDERED: Bupivacaine 0.25% HCL 30 ML VIAL ONE (14:29)
[2023-09-24] MEDS ORDERED: EPINEPHrine 1 MG/ML VIAL ONE (14:29)
[2023-09-24] MEDS ORDERED: Lidocaine 1% PF 5 ML VIAL ONE (14:33)
[2023-09-24] MEDS ORDERED: Fentanyl 250 MCG/5 ML VIAL ONE (14:33)
[2023-09-24] MEDS ORDERED: Midazolam HCl 2 mg/2 ml Vial ONE (14:33)
[2023-09-24] MEDS ORDERED: Dexamethasone 4 mg/ml Vial ONE (14:33)
[2023-09-24] MEDS ORDERED: Ondansetron PF 4 MG/2 ML Vial ONE (14:33)
[2023-09-24] MEDS ORDERED: PROPOFOL 40 ML ONE (14:33)
[2023-09-24] MEDS ORDERED: Rocuronium Bromide 10 MG/ML (10ML VIAL) ONE (14:33)
[2023-09-24] MEDS ORDERED: diphenhydrAMINE 50 MG/ML VIAL ONE (14:33)
[2023-09-24] MEDS ORDERED: SUGAMMADEX SODIUM 200 MG/2 ML VIAL ONE ×2 (14:37→15:29)
[2023-09-24] MEDS: Acetaminophen 500 MG TAB PO SCH ×3 (14:46→23:40)
[2023-09-24] MEDS ORDERED: PHENYLEPHRINE-NS 100 MCG/ML 10 ML SYRINGE ONE (15:04)
[2023-09-24] MEDS ORDERED: Ibuprofen 600 MG TAB PO PRN (15:35)
[2023-09-24] MEDS ORDERED: Ondansetron HCl/PF 4 MG/2 ML Vial IVP PRN (15:40)
[2023-09-24] MEDS ORDERED: Promethazine HCl 25 MG/ML VIAL IM PRN (15:40)
[2023-09-24] MEDS ORDERED: fentaNYL PF 100 MCG/2 ML SYRINGE ONE (15:54)
[2023-09-24] MEDS: traMADol HCl 50 MG TAB PO PRN ×2 (17:40→23:44)
[2023-09-25] MEDS: Piperacillin/Tazobactam 3.375 GM in Sodium Chloride 0.9% 100 ML IVPB SCH (04:46)
[2023-09-25 05:13] LABS: #Monocytes 0.5 thou/uL (0.11-0.59); #Neutrophils 8.7 thou/uL (1.40-6.50); %Basophils 0.2 % (0.0-1.0); %Eosinophils 0.2 % (0.0-10.0); %Lymphocytes 10.8 % (21.0-51.0); %Monocytes 4.7 % (0.0-10.0); %Neutrophils 83.1 % (42.0-75.0); Hematocrit 38.4 % (36.0-47.0); Hemoglobin 12.6 g/dL (12.0-16.0); Mean Corpuscular HGB CONC 32.8 g/dL (32.0-36.0); Mean Corpuscular Hemoglobin 29.6 pg (27.0-31.0); Mean Corpuscular Volume 90.4 fl (78.0-98.0); Mean Platelet Volume 10.3 fL (7.4-10.4); Platelet Count 251 10x3/uL (130-400); RBC Distribution Width 13.4 % (11.5-14.5); Red Blood Cell (RBC) Count 4.25 mill/uL (4.20-5.40); White Blood Cell (WBC) Count 10.5 10x3/uL (4.8-10.8)
[2023-09-25 05:43] LABS: ALT (SGPT) 62 U/L (8-55); AST (SGOT) 67 U/L (5-34); Albumin 3.6 g/dL (3.5-5.0); Alkaline Phosphatase 68 U/L (40-110); Anion Gap 10 mmol/L (10-20); BUN (Urea Nitrogen) 6 mg/dL (7.0-18.7); Bilirubin, Total 0.6 mg/dL (0.2-1.2); Calc. Creatinine Clearance 145 mL/min (70-130); Calcium 9.2 mg/dL (7.8-10.44); Carbon Dioxide 24 mmol/L (22-29); Chloride 106 mmol/L (98-107); Estimated GFR 126; Globulin 2.3 g/dL (2.4-3.5); Glucose 105 mg/dL (70-105); Potassium 4.1 mmol/L (3.5-5.1); Protein, Total 5.9 g/dL (6.0-8.3); Sodium 136 mmol/L (136-145)
[2023-09-25] MEDS: Acetaminophen 500 MG TAB PO SCH (05:58)
[2023-09-25] MEDS: traMADol HCl 50 MG TAB PO PRN (05:58)
[2023-09-25 08:45] VITALS: BP 118/76; TEMP 98
[2023-09-25] MEDS: Heparin 5,000 UNITS/ML VIAL SC SCH (09:52)
== END 2023-09-25 10:30 | disposition home or self-care (01) | DRG 418 ==
LOC: ERS 16:30 → T4-A 21:22
PROVIDERS: ADMIT Student in an Organized Health Care Education/Training Program; ATTEND Hospitalist
PROC: 0T9B70Z Drainage of Bladder with Drainage Device, Via Natural or Artificial Opening (ICD-10-PCS; principal; 2023-09-23)
PROC: 0FT44ZZ Resection of Gallbladder, Percutaneous Endoscopic Approach (ICD-10-PCS; 2023-09-24)
DX: K80.10 Calculus of gallbladder with chronic cholecystitis without obstruction (principal); G82.20 Paraplegia, unspecified; T83.511A Infection and inflammatory reaction due to indwelling urethral catheter, initial encounter; N39.0 Urinary tract infection, site not specified; R82.71 Bacteriuria; Z79.899 Other long term (current) drug therapy; Z98.890 Other specified postprocedural states; E87.6 Hypokalemia; N31.9 Neuromuscular dysfunction of bladder, unspecified; Y84.6 Urinary catheterization as the cause of abnormal reaction of the patient, or of later complication, without mention of misadventure at the time of the procedure
CPT/HCPCS: 36415; 36416; 51702; 71045; 71275; 74177; 76705; 80048; 80053; 81001; 83605; 83690; 84484; 85025; 85610; 85730; 87040; 87077; 87086; 87186; 88304; 93005; 94760; 96365; 96367; 96375; C1889; J0171; J0692; J1100; J1200; J1885; J2250; J2270; J2272; J2405; J2543; J2704; J3010; J3370-JW; J3480; J3490; J7050; J7120; Q9967; S0020